=== PATIENT | female | born 1975 | race African-American/Black ===

== ENCOUNTER 2017-08-20 21:25 | Emergency (ER) | payer BC, OTHER ==
[2017-08-20 21:53] VITALS: BP 160/98; PULSE 101; TEMP 98.9; BMI 27.9
--- NOTE | 2017-08-20 22:08 | PDOC ---
History of Present Illness - General History Source: Patient Exam Limitations: No Limitations - History of Present Illness Initial Comments: 08/20/17 22:16 The patient is a 42 year old female with a significant PMH of insulin dependent diabetes, HTN, and goiter who presents to the emergency department with intermittent palpitations. The patient reports feeling anxious recently as shes been told of an unspecified new-found medical condition she has developed. She notes looking up her medical condition on the internet and becoming more concerned with associated palpitations at rest. The patient reports her symptoms have resolved at presentation. Of note, the patient notes missing her prescribed Janumet and Benicar yesterday. The patient denies chest pain or shortness of breath. She denies nausea, vomiting, or diarrhea. The patient denies headache and dizziness. Denies fever, chills, and constipation. Denies dysuria, frequency, urgency and hematuria. Allergies: NKDA Past surgical history: None reported. Social history: No reported cigarette, alcohol, or drug use. PCP: Dr. Carrington <Sherman Salvador - Last Filed: 08/20/17 22:17> - General History Source: Patient <[email or web address] [email or web address] - Last Filed: 08/20/17 22:20> - General Chief Complaint: Chest Pain Stated Complaint: CHEST PAIN Time Seen by Provider: 08/20/17 22:03 Past History <Sherman Salvador - Last Filed: 08/20/17 22:17> - Past Medical History Anemia: No Asthma: No Cancer: No Cardiac Disorders: No CVA: No COPD: No CHF: No Dementia: No Diabetes: Yes (IDDM) GI Disorders: No HTN: Yes Hypercholesterolemia: No Liver Disease: No Seizures: No Thyroid Disease: Yes (hx goiter not on meds) - Surgical History Abdominal Surgery: No Appendectomy: No Cardiac Surgery: No Cholecystectomy: No Lung Surgery: No Neurologic Surgery: No Orthopedic Surgery: No - Immunization History Immunization Up to Date: Yes - Suicide/Smoking/Psychosocial Hx Smoking History: Never smoked Have you smoked in the past 12 months: No Information on smoking cessation initiated: No Hx Alcohol Use: No Drug/Substance Use Hx: No Substance Use Type: None Hx Substance Use Treatment: No <Miguel Martinez - Last Filed: 08/20/17 22:20> - Past Medical History Allergies/Adverse Reactions: Allergies Allergy/AdvReac Type Severity Reaction Status Date / Time No Known Drug Allergies Allergy Verified 08/20/17 21:53 Home Medications: Ambulatory Orders Insulin Degludec [Tresiba Flextouch U-200] 30 unit SQ DAILY 08/02/17 Levothyroxine Sodium [Levoxyl] 125 mcg PO DAILY 08/02/17 Olmesartan/Hydrochlorothiazide [Benicar Hct 20-12.5MG Tab] 1 tab PO DAILY Sitagliptin Phos/Metformin HCl [Janumet 50-1,000 mg Tablet] 1 each PO DAILY Review of Systems - Review of Systems Able to Perform ROS?: Yes Comments:: 08/20/17 22:16 CONSTITUTIONAL: Absent: fever, chills, diaphoresis, generalized weakness, malaise, loss of appetite HEENT: Absent: rhinorrhea, nasal congestion, throat pain, throat swelling, difficulty swallowing, mouth swelling, ear pain, eye pain, visual Changes CARDIOVASCULAR: (+) Palpitations (resolved). Absent: chest pain, syncope, irregular heart rate, lightheadedness, peripheral edema RESPIRATORY: Absent: cough, shortness of breath, dyspnea with exertion, orthopnea, wheezing, stridor, hemoptysis GASTROINTESTINAL: Absent: abdominal pain, abdominal distension, nausea, vomiting, diarrhea, constipation, melena, hematochezia GENITOURINARY: Absent: dysuria, frequency, urgency, hesitancy, hematuria, flank pain, genital pain MUSCULOSKELETAL: Absent: myalgia, arthralgia, joint swelling SKIN: Absent: rash, itching, pallor HEMATOLOGIC/IMMUNOLOGIC: Absent: easy bleeding, easy bruising, lymphadenopathy, frequent infections ENDOCRINE: Absent: unexplained weight gain, unexplained weight loss, heat intolerance, cold intolerance NEUROLOGIC: Absent: headache, focal weakness or paresthesias, dizziness, unsteady gait, seizure, mental status changes, bladder or bowel incontinence PSYCHIATRIC: (+) Mild anxiety (resolved). Absent: depression, suicidal or homicidal ideation, hallucinations. <Sherman Salvador - Last Filed: 08/20/17 22:17> *Physical Exam - Vital Signs Last Vital Signs Temp Pulse Resp BP Pulse Ox 98.9 F 101 H 17 160/98 100 08/20/17 21:50 08/20/17 21:50 08/20/17 21:50 08/20/17 21:50 08/20/17 21:50 - Physical Exam Comments: 08/20/17 22:16 GENERAL: Well developed, well nourished. Awake and alert. No acute distress. HEENT: Normocephalic, atraumatic. PERRLA, EOMI. No conjunctival pallor. Sclera are non- icteric. Moist mucous membranes. Oropharynx is clear. NECK: Supple. Full ROM. No JVD. Carotid pulses 2+ and symmetric, without bruits. No thyromegaly. No lymphadenopathy. CARDIOVASCULAR: Regular rate and rhythm. No murmurs, rubs, or gallops. Distal pulses are 2+ and symmetric. PULMONARY: No evidence of respiratory distress. Lungs clear to auscultation bilaterally. No wheezing, rales or rhonchi. ABDOMINAL: Soft. Non-tender. Non-distended. No rebound or guarding. No organomegaly. Normoactive bowel sounds. MUSCULOSKELETAL Normal range of motion at all joints. No bony deformities or tenderness. No CVA tenderness. EXTREMITIES: No cyanosis. No clubbing. No edema. No calf tenderness. SKIN: Warm and dry. Normal capillary refill. No rashes. No jaundice. NEUROLOGICAL: Alert, awake, appropriate. Cranial nerves 2-12 intact. No deficits to light touch and temperature in face, upper extremities and lower extremities. No motor deficits in the in face, upper extremities and lower extremities. Normoreflexic in the upper and lower extremities. Normal speech. Toes are downgoing bilaterally. Gait is normal without ataxia. PSYCHIATRIC: Cooperative. Good eye contact. Appropriate mood and affect. <Sherman Salvador - Last Filed: 08/20/17 22:17> - Vital Signs Last Vital Signs Temp Pulse Resp BP Pulse Ox 98.9 F 101 H 17 160/98 100 08/20/17 21:50 08/20/17 21:50 08/20/17 21:50 08/20/17 21:50 08/20/17 21:50 <Miguel Martinez - Last Filed: 08/20/17 22:20> Heart Score/ECG Review #1 08/20/17 22:17 Vent rate 107 bpm Sinus tachycardia Nonspecific ST abnormality Abnormal ECG. <Sherman Salvador - Last Filed: 08/20/17 22:17> Medical Decision Making - Medical Decision Making 08/20/17 22:15 Dr. Martinez: The scribe's documentation has been prepared under my direction and personally reviewed by me in its entirery. I confirm that the note above accurately reflects all work, treatment, procedures, and medical decision making performed by me. 08/20/17 22:18 Pt symptoms have improve. Pt no longer feeling palpitations. Pt has appointment to her architect manager. Pt to be discharged. <Miguel Martinez - Last Filed: 08/20/17 22:20> *DC/Admit/Observation/Transfer - Attestations Scribe Attestion: 08/20/17 22:16 Documentation prepared by Sherman Salvador, acting as medical hospital sales for Miguel Martinez DO. <Sherman Salvador - Last Filed: 08/20/17 22:17> - Discharge Dispostion Admit: No <Miguel Martinez - Last Filed: 08/20/17 22:20> Diagnosis at time of Disposition: Palpitations, Hypertension - Discharge Dispostion Disposition: HOME Condition at time of disposition: Stable - Patient Instructions Printed Discharge Instructions: DI for Palpitations Additional Instructions: Please follow up with your architect manager tomorrow as scheduled. Return if any problems
--- NOTE | 2017-08-21 16:39 | EKG ---
Test Reason : Blood Pressure : / mmHG Vent. Rate : 107 BPM Atrial Rate : 107 BPM P-R Int : 162 ms QRS Dur : 084 ms QT Int : 338 ms P-R-T Axes : 061 -02 046 degrees QTc Int : 451 ms SINUS TACHYCARDIA NONSPECIFIC ST ABNORMALITY ABNORMAL ECG WHEN COMPARED WITH ECG OF 02-AUG-2017 06:22, CRITERIA FOR ANTERIOR INFARCT ARE NO LONGER PRESENT T WAVE INVERSION NO LONGER EVIDENT IN INFERIOR LEADS NONSPECIFIC T WAVE ABNORMALITY, IMPROVED IN LATERAL LEADS Confirmed by JOEY VOGEL MD ([id number]) on 08/21/2017 4:39:37 PM Referred By: Confirmed By:JOEY VOGEL MD
== END 2017-08-20 22:42 | disposition home or self-care (01) ==
LOC: JER 21:25
DX: R00.2 Palpitations (principal); I10 Essential (primary) hypertension; E07.9 Disorder of thyroid, unspecified; E11.9 Type 2 diabetes mellitus without complications
CPT/HCPCS: 93005; 93010; 99281-25